=== PATIENT | female | born 2000 | race Caucasian/White ===

== ENCOUNTER 2022-03-29 04:09 | Emergency (ER) | payer BC ==
[2022-03-29 05:49] LABS: BASO # 0.01 K/mm3 (0.02-0.10); EOS # 0.01 K/mm3 (0.04-0.40); EOS % 0.1 % (1.0-5.0); HEMATOCRIT 41.4 % (37.0-47.0); HEMOGLOBIN 14.3 g/dL (12.5-16.0); LYMPH# 1.44 K/mm3 (1.50-4.00); MEAN CELL VOLUME 84 fl (78-100); MEAN CORPUSCULAR HEMOGLOBIN 29 pg (27-31); MEAN CORPUSCULAR HGB CONC 35 g/dL (33-37); MEAN PLATELET VOLUME 10.7 fl (7.4-10.4); MONO # 0.34 K/mm3 (0.20-0.80); NEU # 9.39 K/mm3 (1.40-6.50); PLATELET COUNT 293 K/mm3 (130-400); RED BLOOD COUNT 4.93 M/mm3 (4.10-5.30); RED CELL DISTRIBUTION WIDTH 12.7 % (11.5-14.5); WHITE BLOOD COUNT 11.2 K/mm3 (4.8-10.8)
[2022-03-29 05:54] LABS: URINE APPEARANCE HAZY; URINE COLOR LT YELLOW
[2022-03-29 05:55] LABS: URINE BILIRUBIN NEGATIVE (NEGATIVE); URINE BLOOD 50 ery/uL (NEGATIVE); URINE GLUCOSE NEGATIVE (NEGATIVE); URINE KETONE NEGATIVE (NEGATIVE); URINE LEUKOCYTE ESTERASE TRACE (NEGATIVE); URINE NITRATE NEGATIVE (NEGATIVE); URINE PROTEIN(semi-quant) NEGATIVE (NEGATIVE); URINE UROBILINOGEN NORMAL (NORMAL)
[2022-03-29 06:08] LABS: ALBUMIN 4.7 g/dL (3.5-5.0); POTASSIUM 4.1 mmol/L (3.5-5.1)
[2022-03-29 06:11] LABS: TOTAL PROTEIN 7.6 g/dL (6.4-8.3)
[2022-03-29 06:12] LABS: TOTAL BILIRUBIN 0.4 mg/dL (0.2-1.2)
[2022-03-29 06:18] LABS: URINE WBC 0-1 /hpf (0-3)
[2022-03-29 06:49] VITALS: BP 122/78
== END 2022-03-29 06:50 | disposition home or self-care (01) ==
LOC: ED 04:09
PROVIDERS: Nurse Practitioner Family
DX: R19.7 Diarrhea, unspecified (principal); E86.0 Dehydration; R55 Syncope and collapse; Z28.310 Unvaccinated for COVID-19; Z20.822 Contact with and (suspected) exposure to COVID-19
CPT/HCPCS: J2405; J7030

== ENCOUNTER 2023-08-15 19:51 | Emergency (ER) | payer OTHER, BC ==
[~2023-08-15] VITALS: Ht 157.5 cm; Wt 73.6 kg
[2023-08-15 20:52] VITALS: BP 113/98
== END 2023-08-15 20:52 | disposition home or self-care (01) ==
LOC: ED 19:51
DX: S61.511A Laceration without foreign body of right wrist, initial encounter (principal); S70.12XA Contusion of left thigh, initial encounter; Z23 Encounter for immunization; W11.XXXA Fall on and from ladder, initial encounter; W26.9XXA Contact with unspecified sharp object(s), initial encounter; Y92.511 Restaurant or cafe as the place of occurrence of the external cause; Y99.0 Civilian activity done for income or pay
CPT/HCPCS: 90715